=== PATIENT | female | born 1975 | race Asian ===

== ENCOUNTER 2019-07-02 14:24 | Outpatient (CLI) | payer OTHER | END 2019-07-02 14:25 | disposition home or self-care (01) | LOC: DI 14:24 | PROVIDERS: ATTEND Registered Nurse Diabetes Educator | DX: Z53.9 Procedure and treatment not carried out, unspecified reason (principal) ==

== ENCOUNTER 2020-03-10 15:35 | Outpatient (CLI) | payer OTHER ==
--- NOTE | 2020-03-10 17:14 | MRI Report ---
PROCEDURE: Hand RT W/O INDICATIONS: MASS AND LUMP TECHNIQUE: Noncontrast coronal T1 spin echo and T2 fast spin echo with fat saturation, axial proton density fast spin echo and T2 fast spin echo with fat saturation, sagittal T1 spin echo and STIR through the hand and fingers. COMPARISON: None. FINDINGS: Image quality: Excellent. Bones: The bones are normally aligned, without marrow contusions or fractures. No intra-osseous les ions. Interphalangeal joint(s): The accessory and proper collateral ligaments appear intact. The volar pl ate demonstrates normal morphology. The extensor central slips appear intact on sagittal images. Metacarpophalangeal joint(s): The accessory and proper collateral ligaments appear intact, as well a s the volar plate and adjacent deep transverse metacarpal ligaments. The sagittal bands of the exten sor hernandez appear normal. Extensor apparatus: The central slips insert normally on the middle phalangeal base. The conjoint a nd terminal tendons insert normally on the distal phalangeal bases. More proximal portions of the ex tensor tendons also appear normal. Flexor apparatus: The flexor digitorum superficialis and profundus tendons both appear intact. All annular and cruciform pulleys appear intact, without adjacent soft tissue edema. Soft tissues: Visualized muscles demonstrate normal bulk and internal signal. No intramuscular mass es identified. Slightly lobulated homogeneously T1 hypointense and T2 hyperintense structure over vol ar aspect of fourth MCP joint is seen superficial to the flexor tendons of the fourth digit and measu res up to 1.9 x 1.2 x 0.8 cm in size most consistent with this being a ganglion cyst. No other gangli on cyst is seen. IMPRESSION: 1. Finding is suggestive of a 1.9 x 1.2 x 0.8 cm ganglion cyst over volar aspect of fourth MCP joint superficial to the flexor tendon. No soft tissue mass or other ganglion cysts is seen. 2. No marrow edema. No fracture or dislocation. 3. Visualized tendons and ligaments are grossly intact. Reviewed by: Trenton Tiwari MD on 03/10/2020 5:13 PM PDT Approved by: Trenton Tiwari MD on 03/10/2020 5:13 PM PDT Station ID: [id number]
== END 2020-03-10 15:36 | disposition home or self-care (01) ==
LOC: DI 15:35
PROVIDERS: ATTEND Orthopaedic Surgery
DX: M79.9 Soft tissue disorder, unspecified (principal)

== ENCOUNTER 2021-09-20 09:01 | Outpatient (CLI) | payer OTHER ==
--- NOTE | 2021-09-28 07:17 | Mammography Report ---
BILATERAL DIGITAL SCREENING MAMMOGRAM 3D/2D: 09/20/2021 CLINICAL: Routine screening. No prior exams were available for comparison. The tissue of both breasts is heterogeneously dense. T his may lower the sensitivity of mammography. No significant masses, calcifications, or other findings are seen in either breast. IMPRESSION: NEGATIVE There is no mammographic evidence of malignancy. A 1 year screening mammogram is recommended. This exam was interpreted at Station ID: [id number]. NOTE: For mammograms, a report in lay terms will be sent to the patient. Approximately 15% of breast malignancies will not be visualized mammographically. In the management of a palpable breast mass, a negative mammogram must not discourage biopsy of a clinically suspicious lesion. Electronically Signed By: Gianni Dias M.D. [email or web address]:09/27/2021 08:25:39 ACR BI-RADS Category 1: Negative 3341F PARENCHYMAL PATTERN: (D) - The breast(s) demonstrate(s) heterogeneously dense fibroglandular parroseanne ma. BI-RADS CATEGORY: (1) - 1 RECOMMENDATION: (ANNUAL) - Recommend routine annual screening mammography. [id number] 1 year screening LATERALITY: (B)
== END 2021-09-20 09:02 | disposition home or self-care (01) ==
LOC: DI.N 09:01
DX: Z12.31 Encounter for screening mammogram for malignant neoplasm of breast (principal)

== ENCOUNTER 2023-02-10 07:45 | Outpatient (CLI) | payer OTHER ==
--- NOTE | 2023-02-12 13:32 | MRI Report ---
PROCEDURE: KNEE WO - LT INDICATIONS: KNEE PAIN TECHNIQUE: Noncontrast sagittal PD fast spin echo and T2 fast spin echo with fat saturation, sagittal 3-D gradie nt sequence with fat saturation; coronal T1 spin echo and PD fast spin echo with fat saturation, and axial PD fast spin echo with fat saturation through the knee. COMPARISON: None. FINDINGS: Image quality: Excellent. Menisci: There is medial discrete extrusion. There is horizontal tear within the anterior horn and estrella dy of the medial meniscus. There is intrasubstance degeneration of the posterior horn the medial meni scus. A small nondisplaced horizontal tear is present of the anterior horn the lateral meniscus. The meniscal root ligaments appear intact. Cruciate ligaments: The anterior and posterior cruciate ligaments appear intact. Medial structures: The medial collateral ligament appears intact. The semimembranosus tendon insert ions and meniscocapsular junction appear intact. Visualized portions of the pes anserinus tendons ap pear normal. Small pes anserinus bursal fluid. Lateral structures: The lateral collateral ligament and the biceps femoris tendon appear intact. Th e popliteus tendon appears normal. Iliotibial band appears normal. Anterior structures: The quadriceps and patellar tendons appear intact. Patellar alignment is melody l. No femoral trochlear dysplasia or ventral trochlear prominence. No edema in the infrapatellar fa t pad. Bones and cartilage: No bone marrow contusions or fractures. There is an osteochondral lesion in the posterosuperior aspect of the medial femoral condyle (series 4 image 11; series 6 image 11). No unst able osteochondral fragment. Tricompartmental cartilage thinning and fibrillation, most pronounced in the medial femorotibial compartment. There is denuded weightbearing articular surface in the medial femoral condyle and medial tibial plateau. Joint space: There is moderate knee joint effusion. Trace Belcher's cyst. Normal appearing synovial p licae are incidentally noted. IMPRESSION: 1. Medial meniscal extrusion and horizontal tear of the anterior horn and body horn the medial menisc us. 2. Small horizontal tear of the anterior horn of the lateral meniscus. 3. 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 4. An osteochondral lesion in the posterior aspect of the medial femoral condyle. No unstable osteoch ondral fragment. 5. Moderate knee joint effusion. 6. Small anserinus bursal fluid, consistent with mild bursitis. Reviewed by: Adonay Wheat MD on 02/12/2023 11:16 AM PDT Approved by: Adonay Wheat MD on 02/12/2023 11:16 AM PDT Station ID: [id number]
== END 2023-02-10 07:46 | disposition home or self-care (01) ==
LOC: DI 07:45
PROVIDERS: ATTEND Student in an Organized Health Care Education/Training Program
DX: S83.242A Other tear of medial meniscus, current injury, left knee, initial encounter (principal); S83.282A Other tear of lateral meniscus, current injury, left knee, initial encounter; M17.12 Unilateral primary osteoarthritis, left knee; M25.462 Effusion, left knee; M89.9 Disorder of bone, unspecified